=== PATIENT | male | born 1990 | race Caucasian/White ===

== ENCOUNTER 2018-10-01 02:08 | Emergency (ER) | payer SELFPAY | END 2018-10-01 03:07 | disposition home or self-care (01) | LOC: E/R 02:08 | DX: S51.812A Laceration without foreign body of left forearm, initial encounter (principal); I10 Essential (primary) hypertension; Y04.0XXA Assault by unarmed brawl or fight, initial encounter | CPT/HCPCS: 12001; 73090; 99283-25 ==